=== PATIENT | male | born 1970 | race Caucasian/White ===

== ENCOUNTER 2017-01-26 12:10 | Emergency (ER) | payer SELFPAY ==
[2017-01-26 12:36] VITALS: RESP 18; TEMP 98.8
--- NOTE | 2017-01-26 13:06 | C.PDOC ---
History Of Present Illness 46 year old patient presents to the ED complaining of feeling anxious. Patient admits to snorting 20 bags of heroin daily. Patient took suboxone after heroin use today. Patient became agitated. Patient was also agitated during transport with EMS and was given Versed. Patient denies chest pain, shortness of breath, vomiting, numbness, weakness, suicidal or homicidal ideation. Time Seen by Provider: 01/26/17 12:25 Chief Complaint (Nursing): Substance Abuse History Per: Patient, EMS History/Exam Limitations: other Onset/Duration Of Symptoms: Hrs (prior to arrival ) Current Symptoms Are (Timing): Still Present Suicide/Self Injury Attempted (Context): None Modifying Factor(s): Other (heroin and Suboxone) Severity: Mild Pain Scale Rating Of: 3 Associated Symptoms: Anxiety, Agitation Recent travel outside of the [place]: No Past Medical History Reviewed: Historical Data, Nursing Documentation, Vital Signs Vital Signs: Last Vital Signs Temp 98.8 F 01/26/17 12:30 Pulse 70 01/26/17 12:30 Resp 18 01/26/17 12:30 BP 124/61 01/26/17 12:30 Pulse Ox 100 01/26/17 13:09 Family History: States: No Known Family Hx - Social History Hx Tobacco Use: Yes Hx Alcohol Use: No Hx Substance Use: Yes - Immunization History Hx Tetanus Toxoid Vaccination: No Hx Influenza Vaccination: No Hx Pneumococcal Vaccination: No Review Of Systems Except As Marked, All Systems Reviewed And Found Negative. Cardiovascular: Negative for: Chest Pain Respiratory: Negative for: Shortness of Breath Gastrointestinal: Negative for: Vomiting Neurological: Negative for: Weakness, Numbness Psych: Positive for: Anxiety. Negative for: Suicidal ideation Physical Exam - Physical Exam Appears: Other (drowsy) Skin: Warm, Dry Head: Atraumatic, Normacephalic Eye(s): bilateral: Other (dilated and reactive bilaterally) Neck: Normal ROM, Supple Chest: Symmetrical Cardiovascular: Rhythm Regular Respiratory: Normal Breath Sounds, No Rales, No Rhonchi, No Wheezing Extremity: Normal ROM Neurological/Psych: Oriented x3 ED Course And Treatment O2 Sat by Pulse Oximetry: 100 (RA) Pulse Ox Interpretation: Normal Disposition Counseled Patient/Family Regarding: Diagnosis, Need For Followup - Disposition Referrals: [facility] [Outside] Disposition Time: 13:10 Additional Instructions: FOLLOW UP WITH MEDICAL CLINIC/DOCTOR IN 1-2 DAYS RETURN TO ER IF SYMPTOMS WORSEN Instructions: Narcotic Abuse (ED) Print Language: PORTUGUESE - POA Present On Arrival: None - Clinical Impression Clinical Impression: Heroin abuse - Scribe Statement The provider has reviewed the documentation as recorded by the Scribe Iraida Dooley Provider Attestation: All medical record entries made by the Jesiibe were at my direction and personally dictated by me. I have reviewed the chart and agree that the record accurately reflects my personal performance of the history, physical exam, medical decision making, and the department course for this patient. I have also personally directed, reviewed, and agree with the discharge instructions and disposition.
[2017-01-26 14:14] VITALS: BP 136/77; PULSE 82; O2SAT 99
== END 2017-01-26 14:20 | disposition home or self-care (01) ==
LOC: C.ER 12:10
DX: F11.10 Opioid abuse, uncomplicated (principal)